=== PATIENT | female | born 1985 | race Caucasian/White ===

== ENCOUNTER 2017-10-01 08:47 | Emergency (ER) | END 2017-10-01 09:46 | disposition home or self-care (01) ==

== ENCOUNTER 2018-09-03 13:27 | Emergency (ER) | payer OTHER ==
[~2018-09-03] VITALS: Ht 170.2 cm; Wt 61.5 kg
[~2018-09-03 13:27] MED LIST: CETI10CA PO; HYDR-842 PO; IBUP-1542 PO; PRED20TA PO; SULF1TAB31 PO; TRIA15CR55 TOP
[2018-09-03 13:33] VITALS: BP 136/58; PULSE 84; RESP 18; Ht 170.2 cm; Wt 61.5 kg
--- NOTE | 2018-09-03 14:02 | ERD ---
ER Documentation Chief Complaint Chief Complaint RASH ON BOTH HANDS, WORSE SINCE MONDAY. POSS LATEX ALLERGY PER PATIENT HPI 32-year-old female presents with several week worsening rash in her hands. It started after beginning a new job where she wears latex gloves. She did do vinyl gloves and the rash persists. She also has a rash on the flexor surfaces of her elbows. She has a history of mild clinical skin but not to this degree. She denies fevers, shortness of breath, additional symptoms. ROS All systems reviewed and are negative except as per history of present illness. Medications Home Meds Active Scripts Prednisone* (Prednisone*) 20 Mg Tab, 40 MG PO DAILY for 4 Days, TAB Prov:DEB SEYMOUR MD 09/03/18 Cetirizine Hcl* (Zyrtec*) 10 Mg Capsule, 10 MG PO DAILY, #30 TAB.CHEW Prov:DEB SEYMOUR MD 09/03/18 Triamcinolone Acetonide (Triamcinolone Acetonide) 0.1% - 15 Gm Cream.gm., 1 APPLIC TOP QID, #1 TUB 30g ok Prov:DEB SEYMOUR MD 09/03/18 Ibuprofen* (Motrin*) 600 Mg Tab, 600 MG PO Q6H PRN for PAIN AND OR ELEVATED TEMP, #30 TAB Prov:HECTOR ATKINS 10/01/17 Sulfamethoxazole/Trimethoprim* (Bactrim Ds* Tablet) 1 Each Tablet, 1 TAB PO BID, #14 TAB Prov:HECTOR ATKINS 10/01/17 Allergies Allergies: Coded Allergies: No Known Allergy (Unverified , 10/01/17) PMhx/Soc Hx Alcohol Use: No Hx Substance Use: No Hx Tobacco Use: No Smoking Status: Never smoker FmHx Family History: No diabetes, No coronary disease, No other Physical Exam Vitals Vital Signs Date Temp Pulse Resp B/P (MAP) Pulse Ox O2 O2 Flow FiO2 Time Delivery Rate 09/03/18 99.0 84 18 136/58 98 13:33 (84) Physical Exam Const: No acute distress Head: Atraumatic Eyes: Normal Conjunctiva ENT: Normal External Ears, Nose and Mouth. Neck: Full range of motion. No meningismus. Resp: Clear to auscultation bilaterally Cardio: Regular rate and rhythm, no murmurs Abd: Soft, non tender, non distended. Normal bowel sounds Skin: No petechiae or purpura. Excoriated small plaque type lesions on the fingers, flexor surface of the elbows slight vesicles in the webspaces. No induration, streaking. No serpiginous lesions. Back: No midline or flank tenderness Ext: No cyanosis, or edema Neur: Awake and alert Psych: Normal Mood and Affect Procedures/MDM Associated with use of latex gloves at work most consistent with eczema or con tact dermatitis. Will treat with triamcinolone, Zyrtec, short course of prednisone, instructions for moisturizer, instructions for worsening redness, fevers, new worsening symptoms otherwise with primary care doctor. She has no signs of purpura, life-threatening rashes, cellulitis, additional concerning signs or symptoms. The child was stable with no new complaints during the ER course. Clinically there is currently no evidence to suggest meningitis, sepsis, acute abdomen or appendicitis, pneumonia, or any other emergent condition that appears to require further evaluation or hospitalization. The child will be sent home with the parents with instructions to return for any new or worsening symptoms per the aftercare instructions. They should otherwise follow up with her primary care doctor this week. Disclaimer: Inadvertent spelling and grammatical errors are likely due to EHR/dictation software use and do not reflect on the overall quality of patient care. Also, please note that the electronic time recorded on this note does not necessarily reflect the actual time of the patient encounter. Departure Diagnosis: Primary Impression: Rash Condition: Stable Patient Instructions: Atopic Dermatitis (Eczema), Contact Dermatitis Additional Instructions: Likely eczema or contact dermatitis. Use moisturizer as well and change dose accordingly. Recheck otherwise for new worsening symptoms with primary care doctor. DEB SEYMOUR MD Sep 03, 2018 14:02
== END 2018-09-03 14:03 | disposition home or self-care (01) ==
LOC: E/R 13:27
DX: L98.9 Disorder of the skin and subcutaneous tissue, unspecified (principal); Z91.040 Latex allergy status
CPT/HCPCS: 99283

== ENCOUNTER 2018-09-16 15:34 | Emergency (ER) | payer OTHER ==
[~2018-09-16] VITALS: Ht 170.2 cm; Wt 59.4 kg
[2018-09-16 15:39] VITALS: BP 126/81; PULSE 66; RESP 18; Ht 170.2 cm; Wt 59.4 kg
--- NOTE | 2018-09-16 16:45 | ERD ---
ER Documentation Chief Complaint Chief Complaint itching dx with eczema HPI This a 32-year-old female previously healthy presenting to the emergency department complaining of pruritus. She was recently diagnosed with eczema. Symptoms are mild. She tried prednisone and triamcinolone cream prescribed, which she was prescribed here during her last visit. She states medication alleviated her symptoms. She denies any fevers, chills, or other symptoms at this time. ROS All systems reviewed and are negative except as per history of present illness. Medications Home Meds Active Scripts Prednisone* (Prednisone*) 20 Mg Tab, 40 MG PO DAILY for 4 Days, TAB Prov:JS BANEGAS PA-C 09/16/18 Triamcinolone Acetonide (Triamcinolone Acetonide) 0.1% - 15 Gm Cream.gm., 1 APPLIC TOP BID, #2 TUB Prov:JS BANEGAS PA-C 09/16/18 Hydroxyzine Hcl* (Atarax*) 25 Mg Tab, 25 MG PO Q6H PRN for ITCHING, #15 TAB Prov:JS BANEGAS PA-C 09/16/18 Prednisone* (Prednisone*) 20 Mg Tab, 40 MG PO DAILY for 4 Days, TAB Prov:DEB SEYMOUR MD 09/03/18 Cetirizine Hcl* (Zyrtec*) 10 Mg Capsule, 10 MG PO DAILY, #30 TAB.CHEW Prov:DEB SEYMOUR MD 09/03/18 Triamcinolone Acetonide (Triamcinolone Acetonide) 0.1% - 15 Gm Cream.gm., 1 APPLIC TOP QID, #1 TUB 30g ok Prov:DEB SEYMOUR MD 09/03/18 Ibuprofen* (Motrin*) 600 Mg Tab, 600 MG PO Q6H PRN for PAIN AND OR ELEVATED TEMP, #30 TAB Prov:HECTOR ATKINS 10/01/17 Sulfamethoxazole/Trimethoprim* (Bactrim Ds* Tablet) 1 Each Tablet, 1 TAB PO BID, #14 TAB Prov:HECTOR ATKINS 10/01/17 Allergies Allergies: Coded Allergies: No Known Allergy (Unverified , 10/01/17) PMhx/Soc Medical and Surgical Hx: pt denies Medical Hx Hx Alcohol Use: No Hx Substance Use: No Hx Tobacco Use: No FmHx Family History: No diabetes Physical Exam Vitals Vital Signs Date Temp Pulse Resp B/P (MAP) Pulse Ox O2 O2 Flow FiO2 Time Delivery Rate 09/16/18 97.8 66 18 126/81 99 15:39 (96) Physical Exam Const: No acute distress Head: Atraumatic Eyes: Normal Conjunctiva ENT: Normal External Ears, Nose and Mouth. Neck: Full range of motion. No meningismus. Resp: Clear to auscultation bilaterally Cardio: Regular rate and rhythm, no murmurs Abd: Soft, non tender, non distended. Normal bowel sounds Skin: Maculopapular rash with some excoriations noted to the right antecubital fossa in the dorsal aspect of the hands bilaterally. Back: No midline or flank tenderness Ext: No cyanosis, or edema Neur: Awake and alert Psych: Normal Mood and Affect Procedures/MDM 32-year-old female presenting to the emergency department with signs and symptoms most consistent with eczema. Patient will be discharged home with prescription for triamcinolone and prednisone. 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 Patient's dermatologic symptoms have stabilized while they have been evaluated in the department and are appropriate for outpatient work up. No evidence of Bryan Karthikeyan's syndrome, Kawasaki's, or sepsis. Departure Diagnosis: Primary Impression: Rash and other nonspecific skin eruption Condition: Fair Patient Instructions: Self-Care for Skin Rashes JS BANEGAS PA-C Sep 16, 2018 16:45
== END 2018-09-16 17:04 | disposition home or self-care (01) ==
LOC: FTE 15:34
DX: L30.9 Dermatitis, unspecified (principal)
CPT/HCPCS: 99283